=== PATIENT | male | born 1995 | race Caucasian/White ===

== ENCOUNTER 2017-01-30 20:58 | Emergency (ER) | payer BC ==
[2017-01-30] MEDS ORDERED: TETRACAINE HCL 150 DROP BTL LEFTEYE ONE (22:22)
[2017-01-30] MEDS ORDERED: TETRACAINE HCL 150 DROP BTL ONE (22:22)
--- NOTE | 2017-01-30 22:24 | ERNOTE ---
ENT HPI Time Seen by Provider: 01/30/17 22:19 Source: patient - Immun/Allergies/Home Medications Immunizations: IMMUNIZATION HX Immunizations Up to Date Yes Allergies/Adverse Reactions: Allergies Allergy/AdvReac Type Severity Reaction Status Date / Time cephalexin Allergy Verified 01/30/17 21:09 Home Medications: HOME MEDICATIONS NK [No Home Medication] 01/30/17 [Last Taken Unknown] - History of Present Illness Narrative: patient believes he got something in his eye today at work. Severity: Present: mild ENT Location: Present: eye (L) Prearrival Treatment: Present: no prearrival treatment Associated Symptoms - ENT: Reports: denies symptoms Review of Systems - Review of Systems Constitutional: Absent: recent illness EYE: Absent: eye discharge, vision changes ENT: Absent: nasal drainage Skin: Absent: rash, lesions Neurological: Absent: headache - Patient's Past Medical History Patient History - Medical: No pertinent hx Patient History - Cardiac/Respiratory: Asthma Patient History - Cancer: No Hx of Cancer Patient History - Surgical Procedures: No surgical history Patient History - Other: None - Social History Living Situations: parents Abuse History: No History of abuse Psych History: No pertinent hx Smoking Status: Never smoker Have you smoked in the past 12 months: No Do you dip or chew tobacco: No Alcohol Use: rarely Drug Use: none - Immunizations Immunizations Up to Date: Yes Physical Exam - Physical Exam General Appearance: Present: wd/wn, alert, no apparent distress Head Exam: Present: normal inspection, no evidence of injury Eye Exam: PERRL: bilateral, EOMI: bilateral, Sclera injection: left, Other: left Neck: Present: normal inspection, nontender, supple, full range of motion Neurological Exam: Present: alert, oriented, normal mood/affect, no motor/ sensory deficits Skin Exam: Present: normal color, warm/dry Lymphatic Exam: Present: no adenopathy ED Progress - Vital Signs Patient's Vital Signs:: I have reviewed the patient's vital signs. Vital Signs: Vital Signs 01/30/17 01/30/17 21:03 22:12 Temperature 37.1 C Pulse Rate 68 74 Respiratory 14 14 Rate Blood Pressure 121/81 131/69 O2 Sat by Pulse 100 99 Oximetry - Progress/Reassessment Chief Complaint: Eye Injury/Trauma Procedures Date and Time: 01/30/2017 22:40 Eye Location: left eye Tetracaine Drops Administered: Yes Cyclogel 2 Drops Administered: left eye Eye - Cornea: Left: examined w/fluorescein, fluorescein dye uptake - minor medial cornea, abrasion - medial cornea Complications: Pt kori procedure well Departure Clinical Impression: Corneal abrasion, left Qualifiers: Encounter type: initial encounter Qualified Code(s): S05.02XA - Injury of conjunctiva and corneal abrasion without foreign body, left eye, initial encounter - Departure Disposition: Home self-care Condition: Good Instructions: Corneal Abrasion, [id number] Referrals: Lizy Quintero MD [Primary Care Provider] -
[2017-01-30] MEDS ORDERED: NEOMY SULF/POLYMYX B SULF/HC 75 DROP BTL LEFTEYE ONE (22:46)
[2017-01-30] MEDS ORDERED: NEOMY SULF/POLYMYX B SULF/HC 75 DROP BTL ONE (22:49)
[2017-01-30 22:56] VITALS: BP 120/80
== END 2017-01-30 22:55 | disposition home or self-care (01) ==
LOC: ER 20:58
DX: S05.02XA Injury of conjunctiva and corneal abrasion without foreign body, left eye, initial encounter (principal); X58.XXXA Exposure to other specified factors, initial encounter; Y93.89 Activity, other specified; Y92.63 Factory as the place of occurrence of the external cause; Y99.0 Civilian activity done for income or pay